=== PATIENT | female | born 1980 | race Caucasian/White ===

== ENCOUNTER 2018-01-02 20:30 | Inpatient (IN) | payer BC ==
[~2018-01-02 20:30] MED LIST: DEXTROSE 5%-LACTATED RINGERS 1,000 ML IV SCH
[2018-01-02 22:05] LABS: BASO % 0.8 % (0-2.0); EOS % 0.7 % (0-4.5); HEMOGLOBIN 12.1 GM/dL (10.7-15.3); LYMPH % 21.9 % (8-40); MCH 27.3 pg (25.7-33.7); MCHC 34.6 g/dl (32.0-36.0); MEAN PLT VOLUME 9.1 fl (7.5-11.1); MONO % 7.7 % (3.8-10.2); NEUT % 68.9 % (42.8-82.8); PLATELET COUNT 238 K/MM3 (134-434); RBC 4.43 M/mm3 (3.60-5.2); RDW 14.7 % (11.6-15.6); WHITE BLOOD COUNT 10.4 K/mm3 (4.0-10.0)
[2018-01-02] MEDS ORDERED: FENTANYL/BUPIVACAINE/NS/PF - PCEA - 50 ML DISP.SYRIN EP ONE (22:12)
[2018-01-02 22:19] LABS: INR 0.98 (0.82-1.09); PROTHROMBIN TIME (PATIENT) 11.1 SEC (9.7-13.0)
[2018-01-02 22:21] LABS: ACTIVATED PTT 23.7 SECONDS (26.9-34.4)
[2018-01-02] MEDS ORDERED: OXYTOCIN 20 UNITS in 0.9% NS 20 UNIT/1,000 ML INFUS.BAG IV ONE (22:26)
[2018-01-02 22:40] LABS: ANION GAP 12 (8-16); BLOOD UREA NITROGEN 11 mg/dL (7-18); CALCIUM 9.1 mg/dL (8.5-10.1); CHLORIDE 105 mmol/L (98-107); CO2 20 mmol/L (21-32); CREATININE 0.7 mg/dL (0.55-1.02); GLUCOSE,RANDOM 109 mg/dL (74-106); POTASSIUM 3.7 mmol/L (3.5-5.1); SODIUM 137 mmol/L (136-145)
--- NOTE | 2018-01-02 23:05 | HP ---
Past Medical History - Primary Care Physician PCP:: Louis Winters - Admission Chief Complaint: 37yo P1 @ 38.3 wks with LOF, clear, @ 6pm, + ctx, no VB, + FM History of Present Illness: 1. AMA - Materni 21 wnl, XY 2. Rh neg for RhoGam if baby Rh+ 3. FamHx of Hidalgo syndrome History Source: Patient Limitations to Obtaining History: No Limitations - Past Medical History ...: 2 ...Para: 1 ... Weeks Gestation by Dates: 38.3 ...EDC by Dates: 01/13/18 - Past Surgical History Past Surgical History: Yes: None Hx Myomectomy: No Hx Transabdominal Cerclage: No Additional Surgical History: 2017 Right Meniscectomy - Smoking History Smoking history: Never smoked Have you smoked in the past 12 months: No - Alcohol/Substance Use Hx Alcohol Use: No Home Medications - Allergies Allergies/Adverse Reactions: Allergies Allergy/AdvReac Type Severity Reaction Status Date / Time No Known Allergies Allergy Verified 11/13/15 10:23 Family Disease History - Family Disease History Family Disease History: Other: Father (Myelomalasia), Sister (Breast CA - Hidalgo syndrome) Review of Systems - Review of Systems Constitutional: reports: No Symptoms Eyes: reports: No Symptoms HENT: reports: No Symptoms Neck: reports: No Symptoms Cardiovascular: reports: No Symptoms Respiratory: reports: No Symptoms Gastrointestinal: reports: No Symptoms Genitourinary: reports: No Symptoms, Other (LOF, Contructions) Breasts: reports: No Symptoms Reported Musculoskeletal: reports: No Symptoms Integumentary: reports: No Symptoms Neurological: reports: No Symptoms Endocrine: reports: No Symptoms Hematology/Lymphatic: reports: No Symptoms Psychiatric: reports: No Symptoms Physical Exam - Maternity Constitutional: Yes: Well Nourished Eyes: Yes: WNL HENT: Yes: WNL Neck: Yes: WNL Cardiovascular: Yes: WNL Lungs: Clear to auscultation Breast(s): Yes: WNL - Abdominal Exam/OB Fundal Height: 38 Number of Fetuses: Single Presentation: Vertex Contractions: Yes Regularity: Regular Intensity: Moderate Monitor Mode: External Heart Rate (range): 130 Heart Rate Location: Midline Category: I Accelerations: Uniform Decelerations: None - Vaginal Exam/OB Vaginal Bleediing: No Speculum Exam: No Dilatation (cm): FD Effacement (%): 100 Amniotic Membrane Status: Ruptured Nitrazine Test: Positive Amniotic Fluid: Yes: Clear Presentation: Vertex/Position Station: 0 - Physical Exam Musculoskeletal: Yes: WNL Extremities: Yes: WNL Edema: No Integumentary: Yes: WNL Deep Tendon Reflex Grade: Normal +2 ...Motor Strength: WNL Psychiatric: Yes: WNL - Labs Lab Results: CBC, BMP 01/02/18 21:45 01/02/18 21:45 Assessment/Plan 37 yo P1 @ 38wks in active labor Second stage MF status reassuring Will proceed with pushing no pain meds at this point
[2018-01-02 23:06] VITALS: BMI 27.3
[2018-01-02 23:18] LABS: ARTERIAL BLOOD GAS pH 7.33 (7.35-7.45)
[2018-01-02 23:19] LABS: ARTERIAL BLOOD GAS BASE EXCESS -3.1 meq/l (-2-2); ARTERIAL BLOOD GAS PCO2 44.4 mmHg (35-45)
[2018-01-02 23:21] LABS: ARTERIAL BLD GAS O2 SATURATION 6.8 % (90-98.9); ARTERIAL BLOOD GAS PO2 6.7 mmHg (80-100)
[2018-01-02 23:22] LABS: VENOUS PC02 37.5 mmHg (38-52); VENOUS PH 7.36 (7.32-7.42); VENOUS PO2 12.1 mmHg (28-48)
--- NOTE | 2018-01-02 23:24 | PN ---
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
[2018-01-02] MEDS ORDERED: BENZOCAINE 28 GM HEMORRHOIDAL OINTMENT TP PRN (23:25)
[2018-01-02] MEDS ORDERED: BENZOCAINE 20% 57 GM BOTTLE TP PRN (23:25)
[2018-01-02] MEDS ORDERED: BISACODYL 10 MG SUPP.RECT RC PRN (23:25)
[2018-01-02] MEDS ORDERED: METHYLERGONOVINE MALEATE 0.2 MG/1 ML AMP IM PRN (23:25)
[2018-01-02] MEDS ORDERED: IBUPROFEN 600 MG TABLET (FP) PO PRN (23:25)
[2018-01-02] MEDS ORDERED: WITCH HAZEL 50% (TUCKS) 40 PAD/JAR PAD TP PRN (23:25)
[2018-01-02] MEDS ORDERED: ACETAMINOPHEN 325 MG TABLET (FP) PO PRN (23:25)
[2018-01-02] MEDS ORDERED: D5W-LR W/ 20 UNITS OXYTOCIN 1,000 ML IV SCH (23:30)
[2018-01-02] MEDS ORDERED: OXYTOCIN 20 UNITS in 0.9% NS 20 UNIT/1,000 ML INFUS.BAG IV SCH (23:45)
[2018-01-03] MEDS ORDERED: TUBERCULIN PPD 5 TU/0.1ML SYRINGE (IN PATIENT USE ONLY) ID ONE
--- NOTE | 2018-01-03 07:27 | PN ---
Post Progress Note - Subjective Subjective: No complains, voiding without a problem, bleeding under control, ambulating, tolerating regular diet Post Day: 1 Type of Delivery: Vital Signs: Vital Signs Temperature 97.8 F 01/03/18 06:00 Pulse Rate 85 01/03/18 06:00 Respiratory Rate 18 01/03/18 06:00 Blood Pressure 113/73 01/03/18 06:00 O2 Sat by Pulse Oximetry (%) 98 01/02/18 23:45 Breast Exam: Yes: Soft Uterus: Yes: Fundus Firm Abdomen/GI: Yes: Abdomen soft Lochia: Yes: Rubra Lochia, amount: Small Extremities: Yes: Calves non-tender Perineum: Yes: Intact Activity: Ambulating - Labs Labs: CBC WBC 10.4 K/mm3 (4.0-10.0) H D 01/02/18 21:45 RBC 4.43 M/mm3 (3.60-5.2) 01/02/18 21:45 Hgb 12.1 GM/dL (10.7-15.3) D 01/02/18 21:45 Hct 35.0 % (32.4-45.2) 01/02/18 21:45 MCV 79.0 fl (80-96) L 01/02/18 21:45 MCH 27.3 pg (25.7-33.7) 01/02/18 21:45 MCHC 34.6 g/dl (32.0-36.0) 01/02/18 21:45 RDW 14.7 % (11.6-15.6) 01/02/18 21:45 Plt Count 238 K/MM3 (134-434) D 01/02/18 21:45 MPV 9.1 fl (7.5-11.1) 01/02/18 21:45 Neutrophils % 68.9 % (42.8-82.8) 01/02/18 21:45 Lymphocytes % 21.9 % (8-40) D 01/02/18 21:45 Monocytes % 7.7 % (3.8-10.2) 01/02/18 21:45 Eosinophils % 0.7 % (0-4.5) D 01/02/18 21:45 Basophils % 0.8 % (0-2.0) 01/02/18 21:45 Assessment/Plan 37 yo P2 now s/p VSS, Afebrile follow h/h doing well Will follow screen to know if she needs RhoGam Baby boy for circumcision continue routine care
[2018-01-03] MEDS: FERROUS SO4 325 MG TABLET (FP) PO SCH ×2 (08:00→17:39)
[2018-01-03 08:14] LABS: BASO % 0.3 % (0-2.0); EOS % 0.5 % (0-4.5); HEMATOCRIT 34.1 % (32.4-45.2); HEMOGLOBIN 11.6 GM/dL (10.7-15.3); LYMPH % 15.3 % (8-40); MEAN CELL VOLUME 79.5 fl (80-96); MEAN PLT VOLUME 9.4 fl (7.5-11.1); MONO % 8.6 % (3.8-10.2); NEUT % 75.3 % (42.8-82.8); PLATELET COUNT 197 K/MM3 (134-434); RBC 4.29 M/mm3 (3.60-5.2); RDW 14.8 % (11.6-15.6); WHITE BLOOD COUNT 11.8 K/mm3 (4.0-10.0)
[2018-01-03] MEDS: PRENATAL VITAMINS W/ FOLIC ACID TABLET (FP) PO SCH (10:43)
[2018-01-03] MEDS ORDERED: SENNOSIDES/DOCUSATE COMBO (SENNA PLUS) TABLET (UD) PO PRN (22:00)
[2018-01-04] MEDS: FERROUS SO4 325 MG TABLET (FP) PO SCH (08:11)
[2018-01-04 08:26] VITALS: BP 101/63; PULSE 73; TEMP 98.5
[2018-01-04] MEDS: PRENATAL VITAMINS W/ FOLIC ACID TABLET (FP) PO SCH (09:06)
--- NOTE | 2018-01-04 10:05 | PN ---
Post Progress Note - Subjective Subjective: No complaints Post Day: 2 Type of Delivery: Vital Signs: Vital Signs Temperature 98.5 F 01/04/18 08:22 Pulse Rate 73 01/04/18 08:22 Respiratory Rate 20 01/04/18 08:22 Blood Pressure 101/63 01/04/18 08:22 O2 Sat by Pulse Oximetry (%) 98 01/02/18 23:45 Breast Exam: Yes: Soft Uterus: Yes: Fundus Firm, Fundus below umbilicus, Non-tender Abdomen/GI: Yes: Abdomen soft, Tolerating PO Lochia: Yes: Rubra Lochia, amount: Small Extremities: Yes: Calves non-tender Perineum: Yes: Intact Activity: Ambulating - Labs Labs: CBC WBC 11.8 K/mm3 (4.0-10.0) H 01/03/18 07:30 RBC 4.29 M/mm3 (3.60-5.2) 01/03/18 07:30 Hgb 11.6 GM/dL (10.7-15.3) 01/03/18 07:30 Hct 34.1 % (32.4-45.2) 01/03/18 07:30 MCV 79.5 fl (80-96) L 01/03/18 07:30 MCH 27.0 pg (25.7-33.7) 01/03/18 07:30 MCHC 34.0 g/dl (32.0-36.0) 01/03/18 07:30 RDW 14.8 % (11.6-15.6) 01/03/18 07:30 Plt Count 197 K/MM3 (134-434) 01/03/18 07:30 MPV 9.4 fl (7.5-11.1) 01/03/18 07:30 Neutrophils % 75.3 % (42.8-82.8) 01/03/18 07:30 Lymphocytes % 15.3 % (8-40) D 01/03/18 07:30 Monocytes % 8.6 % (3.8-10.2) 01/03/18 07:30 Eosinophils % 0.5 % (0-4.5) 01/03/18 07:30 Basophils % 0.3 % (0-2.0) 01/03/18 07:30 Assessment/Plan 37yo P2 s/p , doing well stable, afebrile. care instructions reviewed. Continue routine care. Ambulation encouraged Discharge instruction reviewed.
--- NOTE | 2018-01-04 10:07 | DS ---
Physical Exam-[employer] Vital Signs: Vital Signs Temperature 98.5 F 01/04/18 08:22 Pulse Rate 73 01/04/18 08:22 Respiratory Rate 20 01/04/18 08:22 Blood Pressure 101/63 01/04/18 08:22 O2 Sat by Pulse Oximetry (%) 98 01/02/18 23:45 Constitutional: Yes: Well Nourished, No Distress, Calm Eyes: Yes: WNL, Conjunctiva Clear HENT: Yes: WNL, Atraumatic, Normocephalic Neck: Yes: WNL, Supple, Trachea Midline Cardiovascular: Yes: WNL, Regular Rate and Rhythm Respiratory: Yes: WNL, Regular, CTA Bilaterally Gastrointestinal: Yes: WNL, Normal Bowel Sounds, Soft ...Rectal Exam: Yes: Deferred Renal/: Yes: WNL Internal Exam Deferred: Yes ....Post : Yes: Uterus firm, Uterus non-tender, Slight lochia rubra Breast(s): Yes: WNL Musculoskeletal: Yes: WNL Extremities: Yes: WNL Edema: No Integumentary: Yes: WNL Neurological: Yes: WNL, Alert, Oriented ...Motor Strength: WNL Psychiatric: Yes: WNL, Alert, Oriented Labs: CBC, BMP 01/03/18 07:30 01/02/18 21:45 Delivery - Delivery Vaginal Delivery: No Problems Type of Anesthesia: None Episiotomy/Laceration: None EBL (cc): 200 Delivery, Single - Stages of Labor Date 1st Stage Initiatied: 01/02/18 Time 1st Stage Initiated: 20:30 Date 2nd Stage Initiated: 01/02/18 Time 2nd Stage Initiated: 22:15 Date of Delivery: 01/02/18 Time of Delivery: 22:28 Time Placenta Delivered: 22:30 Placenta: Yes: Spontaneous - 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 - 1 Minute Total Score: 9 5 Minutes Total Score: 9 - Feeding Plan Initial Plan: Exclusive throughout hospitalization Discharge Summary Reason For Visit: LABOR Spontaneous labor Procedures: Principal: Hospital Course: Normal recovery Condition: Good - Instructions Diet, Activity, Other Instructions: return to office in 4-6 weeks for check. call office for appointment. Referrals: Grant Quevedo MD [Staff Physician] - Disposition: HOME - Home Medications Comprehensive Discharge Medication List: Ambulatory Orders 19 Tablet 1 tab PO DAILY 01/02/18
== END 2018-01-04 13:15 | disposition home or self-care (01) | DRG 775 ==
LOC: JLDR 20:30 → J3W 01-03 00:30
PROVIDERS: ADMIT Obstetrics & Gynecology; ATTEND Obstetrics & Gynecology
PROC: 10E0XZZ Delivery of Products of Conception, External Approach (ICD-10-PCS; principal; 2018-01-02)
DX: O80 Encounter for full-term uncomplicated delivery (principal); Z3A.38 38 weeks gestation of pregnancy; Z37.0 Single live birth
CPT/HCPCS: 36415; 36600; 59409; 80048; 82803; 85025; 85461; 85610; 85730; 86593; 86850; 86870; 86900; 86901; 86902; 86999